=== PATIENT | female | born 1970 | race Caucasian/White ===

== ENCOUNTER 2017-07-24 07:38 | Inpatient (IN) | payer OTHER ==
[~2017-07-24] VITALS: Ht 162.6 cm; Wt 94.8 kg
[2017-07-24] VITALS (11 sets, daily range): BP systolic 94–165; BP diastolic 28–83
[2017-07-24 08:02] LABS: HEMATOCRIT 48.6 % (37.0-47.0); HEMOGLOBIN 15.2 gm/dL (12.0-15.0); MCH 29.5 pg (26.0-34.0); MCHC 31.3 g/dL (28.0-37.0); MCV 94.2 fL (80.0-100.0); MPV 9.7 fl. (7.2-11.1); NUCLEATED RBCS 0 /100WBC; PLATELET COUNT* 334 thou/uL (150-400); RBC 5.15 mil/uL (4.20-5.00); RDW-CV 14.9 % (10.5-14.5); WBC 11.9 thou/uL (4.0-11.0)
[2017-07-24] MEDS ORDERED: NOVOLOG100 UNIT/1 SUBQ (08:08)
[2017-07-24] MEDS ORDERED: ASPIR-LOW81 MG PO (08:08)
[2017-07-24] MEDS ORDERED: ZOCOR20 MG PO (08:09)
[2017-07-24] MEDS ORDERED: WELLBUTRIN XL300 MG PO (08:09)
[2017-07-24] MEDS ORDERED: TYLENOL EXTRA500 MG PO (08:09)
[2017-07-24] MEDS ORDERED: LYRICA 75 MG CA75 MG PO (08:09)
[2017-07-24 08:13] LABS: BUN 17 mg/dL (7-18); CALCIUM 9.1 mg/dL (8.5-10.1); CHLORIDE 90 mmol/L (98-107); CREATININE 1.4 mg/dL (0.6-1.3); SODIUM 126 mmol/L (136-145)
[2017-07-24 08:15] LABS: APTT 31.8 Seconds (25.0-31.3)
[2017-07-24 08:22] LABS: ALBUMIN 3.5 g/dL (3.4-5.0); ALKALINE PHOSPHATASE 167 U/L (46-116); LIPASE 46 U/L (73-393); NT-PRO BRAIN NAT PEPTIDE 64 pg/mL (<300); SGOT 21 U/L (15-37); SGPT 24 U/L (30-65); TOTAL BILIRUBIN 0.5 mg/dL (<0.1-1.0); TOTAL PROTEIN 8.5 g/dL (6.4-8.2); TROPONIN-I LEVEL <0.06 ng/mL (<0.06)
[2017-07-24 08:25] LABS: ANION GAP 29 mmol/L (7-16); CO2 7 mmol/L (21-32)
[2017-07-24 08:26] LABS: BE -22.4 mmol/L (-2 to +3)
[2017-07-24 08:26] LABS: GLUCOSE 592 mg/dL (70-99)
[2017-07-24 08:30] LABS: HCO3 4.3 mmol/L (22.0-26.0); PCO2 < 17.0 mmHg (35.0-45.0); PO2 146.5 mmHg (75.0-100.0); pH 7.126 (7.340-7.450)
[2017-07-24 08:47] LABS: ABSOLUTE LYMPHOCYTES 0.8 thou/uL (0.8-5.3); ABSOLUTE MONOCYTES 0.2 thou/uL (0.0-1.2); ABSOLUTE NEUTROPHILS 10.8 thou/uL (1.6-8.1); ATYPICAL LYMPHS 1 %; PLATELET ESTIMATE ADEQUATE; TOXIC GRANULATION 1+
[2017-07-24 08:59] LABS: MAGNESIUM 1.9 mg/dL (1.8-2.4); PHOSPHORUS* 4.9 mg/dL (2.5-4.9)
--- NOTE | 2017-07-24 10:53 | NUR ---
NOTIFIED ISAMAR OF BG 300 AND INSULIN GTT CHANGED TO 4.4
--- NOTE | 2017-07-24 11:00 | EKG ---
[place] [address] ELECTROCARDIOGRAM REPORT Name: KARTIK ORTIZ Room: [place] [address] [facility]#: [id number] Admission: 07/24/17 Attend Phys: Hardeep Thomas MD Discharge: Date of : 74 Report #: [id number] THIS REPORT FOR: //name// [facility] ED Test Date: 2017-07-24 Test Time: 07:48:39 Pat Name: KARTIK ORTIZ Department: Room: [facility] Gender: F Professor Of Visual Arts: : 1970 Requested By: Criss Doherty Order Number: [id number] MD: Kodak Dexter Measurements Intervals [place] Rate: 133 P: 150 NE: 121 QRS: -51 QRSD: 109 T: 57 QT: 326 QTc: 485 Interpretive Statements Sinus or ectopic atrial tachycardia Inferior infarct, old Consider anterior infarct Lateral leads are also involved Electronically Signed On 07-24-2017 10:59:52 MEETING FACILITATOR by Kodak Dexter [email or web address] <ELECTRONICALLY SIGNED> By: Kodak Dexter MD, [facility] 07/24/17 1059 7 7 Kodak Dexter MD, [facility] /EPI
--- NOTE | 2017-07-24 13:04 | NUR ---
PATIENT ADMITED TO THE UNIT AT 1135 WITH DKA. BLOOD GLUCOSE ON ARRIVAL 236. INSULIN AT 4.4 UNITS/HR. PATIENT DENIES PAIN. STATES SHE DOES NOT FEEL SOA LIKE BEFORE. DENIES NAUSEA/VOMITING. ICE CHIPS PROVIDED. ADMISSION AND HISTORY COMPLETED. ORIENTED TO THE UNIT. USUALLY INDEPENDENT WITH ADLS. AT HOME SHE STATES HER BLOOD SUGARS ARE USUALLY WELL CONTROLLED WITH INSULIN PUMP. IN THE PROCESS OF OBTAINING CONTINUOUS BLOOD GLUCOSE MONITORING DEVICE. STATES SHE TAKES HER BLOOD SUGAR TWICE A DAY. HAS HAD "THE STOMACH FLU" SINCE Monday07/20/17. PROVIDED WITH CALL LIGHT. AT [facility]. COMPLAINT WITH CARE AND DENIES FURTHER IMMEDIATE NEEDS FROM NURSING AT THIS TIME.
[2017-07-24 13:32] LABS: CALCIUM 8.2 mg/dL (8.5-10.1); CREATININE 1.1 mg/dL (0.6-1.3)
[2017-07-24 13:34] LABS: POTASSIUM 3.5 mmol/L (3.5-5.1)
[2017-07-24 13:36] LABS: ALBUMIN 2.7 g/dL (3.4-5.0); MAGNESIUM 1.7 mg/dL (1.8-2.4); PHOSPHORUS* 2.9 mg/dL (2.5-4.9)
--- NOTE | 2017-07-24 17:19 | EKG ---
[place] [address] ELECTROCARDIOGRAM REPORT Name: KARTIK ORTIZ Room: [address] ADM IN [facility]#: [id number] Admission: 07/24/17 Attend Phys: Hardeep Thomas MD Discharge: Date of : 74 Report #: [id number] THIS REPORT FOR: //name// [facility] ED Test Date: 2017-07-24 Test Time: 07:44:01 Pat Name: KARTIK ORTIZ Department: Room: [address] Gender: F Testing Manager: : 1970 Requested By: Hardeep Thomas Order Number: [id number] Reading MD: Kodak Dexter Measurements Intervals [place] Rate: 136 P: 76 AL: 137 QRS: 250 QRSD: 102 T: 25 QT: 296 QTc: 446 Interpretive Statements Sinus tachycardia Consider right ventricular hypertrophy Probable inferior infarct Probable anterolateral infart Baseline wander in lead(s) II,III,aVF No previous ECG available for comparison Electronically Signed On 07-24-2017 17:19:31 ALARM SIGNAL OPERATOR by Kodak Dexter [email or web address] <ELECTRONICALLY SIGNED> By: Kodak Dexter MD, [facility] 07/24/17 1719 0744 0744 Kodak Dexter MD, [facility] /EPI
[2017-07-24 17:39] LABS: CALCIUM 7.9 mg/dL (8.5-10.1); POTASSIUM 3.4 mmol/L (3.5-5.1)
[2017-07-24 17:41] LABS: ALBUMIN 2.6 g/dL (3.4-5.0); MAGNESIUM 1.7 mg/dL (1.8-2.4); PHOSPHORUS* 1.9 mg/dL (2.5-4.9)
--- NOTE | 2017-07-24 17:53 | NUR ---
PATIENT PROGRESSING TOWARDS GOALS. DKA RESOLVING. REFER TO ACCUCHECKS AND LABS. PATIENT DENIES ANY OTHER ACUTE ISSUES. WISHES TO DISCHARGE TOMORROW.
[2017-07-24 21:37] LABS: CALCIUM 7.9 mg/dL (8.5-10.1); CREATININE 0.9 mg/dL (0.6-1.3); POTASSIUM 4.2 mmol/L (3.5-5.1)
[2017-07-24 21:40] LABS: ALBUMIN 2.4 g/dL (3.4-5.0); MAGNESIUM 1.6 mg/dL (1.8-2.4)
[2017-07-25] VITALS (9 sets, daily range): BP systolic 92–143; BP diastolic 56–74
[2017-07-25 04:44] LABS: HEMATOCRIT 37.8 % (37.0-47.0); MCH 29.3 pg (26.0-34.0); MCHC 32.6 g/dL (28.0-37.0); MCV 89.8 fL (80.0-100.0); MPV 9.1 fl. (7.2-11.1); RBC 4.2 mil/uL (4.20-5.00); RDW-CV 14.4 % (10.5-14.5)
[2017-07-25 04:57] LABS: CALCIUM 8.1 mg/dL (8.5-10.1); CREATININE 0.9 mg/dL (0.6-1.3); POTASSIUM 3.7 mmol/L (3.5-5.1)
[2017-07-25 05:08] LABS: HEMOGLOBIN 12.3 gm/dL (12.0-15.0)
--- NOTE | 2017-07-25 06:42 | NUR ---
PATIENT PROGRESSING TOWARDS GOALS.
[2017-07-25 07:18] LABS: URINE BLOOD NEGATIVE (Negative); URINE CLARITY CLEAR; URINE COLOR YELLOW; URINE GLUCOSE-RANDOM 2+ (Negative); URINE LEUKOCYTES NEGATIVE (Negative); URINE NITRITE NEGATIVE (Negative); URINE PROTEIN TRACE (Negative); URINE SPECIFIC GRAVITY >= 1.030 (1.005-1.030); URINE UROBILINOGEN 0.2 E.U./dl (0.2-1.0)
[2017-07-25 07:21] LABS: ICTOTEST (BILI CONFIRMATORY) Negative (Negative); URINE BILIRUBIN 1+ (Negative); URINE KETONES 3+ (Negative)
--- NOTE | 2017-07-25 08:29 | NUR ---
3996 ASSUMED CARE OF PATIENT. PLEASE SEE DOCUMENTED ASSESSMENT. DR PENN TO SEE PATIENT. PT TO EAT AND STOP INSULIN DRIP;PT WILL TRANSITION TO OWN INSULIN PUMP TONIGHT. PT IS NOW TELE STATUS
--- NOTE | 2017-07-25 09:12 | NUR ---
OFF INSULIN GTT. TO MOVE TO ROOM 205
--- NOTE | 2017-07-25 10:48 | NUR ---
TRANSFERRED PER WHEELCHAIR TO 205 WITH ALL RECORDS AND BELONGINGS. THIS NURSE CONTINUES CARE. ORIENTED TO TELEMETRY
--- NOTE | 2017-07-25 15:56 | NUR ---
1100 PATIENT STARTED OWN INSULIN PUMP AT BASAL RATE.
--- NOTE | 2017-07-25 15:56 | NUR ---
1230 MAG RESULT NOTED. HEADACHE RESOLVED. APPETITE GOOD. FAMILY PRESENT
--- NOTE | 2017-07-25 17:46 | NUR ---
1715 PATIENT'S INSULIN PUMP IS OCCLUDED. PT IS NOT SURE HOW LONG SHE HAS NOT RECEOVED BASAL RATE. DINNER BLOOD SUGAR COVERED WITH LISPRO
--- NOTE | 2017-07-25 17:47 | NUR ---
PT PROGRESSING TOWARDS GOALS. OFF OF DKA PROTOCOL THIS MORNING AND INSULIN GTT DISCONTINUED. PT STARTED OWN INSULIN PUMP BUT IT IS NOW OCCLUDED. APPETITE IS GOOD. BRP. FAMILY HAS VISITED.
--- NOTE | 2017-07-25 18:36 | NUR ---
PATIENT'S INSULIN PUMP IS NOW FUNCTIONAL AND INFUSING AT BASAL RATE
[2017-07-26 00:23] VITALS: BP 126/63
--- NOTE | 2017-07-26 02:36 | NUR ---
Pt's BG in low 200s. Denies pain, but states she feels like she is in afib based on symptomology when she was in afib in the past. ST per monitor, also having freq PVCs. IV to RAC found to be infiltrated shortly after beginning of shift; new IV started to LW. VSS. Requested BG checked after awakening and noticing that she had been sweating; BG 200 at that time. Pt's insulin pump has been operating properly. Will continue to monitor.
[2017-07-26 04:16] VITALS: BP 107/65
[2017-07-26 05:06] LABS: HEMATOCRIT 35.7 % (37.0-47.0); HEMOGLOBIN 12.1 gm/dL (12.0-15.0); MCHC 33.7 g/dL (28.0-37.0); MCV 88.8 fL (80.0-100.0); MPV 9.2 fl. (7.2-11.1); RBC 4.02 mil/uL (4.20-5.00); RDW-CV 14.9 % (10.5-14.5); WBC 5.5 thou/uL (4.0-11.0)
[2017-07-26 06:09] LABS: CREATININE 0.6 mg/dL (0.6-1.3); MAGNESIUM 1.7 mg/dL (1.8-2.4); POTASSIUM 3.6 mmol/L (3.5-5.1)
[2017-07-26 09:00] VITALS: BP 108/69
--- NOTE | 2017-07-26 09:00 | NUR ---
ASSUMED PT. CARE AND RECEIVED REPORT AT 0730. PT A/OX4, VSS, MONITOR ON TRACING SR. PT. DENIES CURRENT PAIN/SOB. STATES SHE FEELS "PALPITATIONS" AT TIMES. SHE CAN BE ST AND HAVE PVCS AT TIMES. FULL ASSESSMENT COMPLETED, REFER TO CHARTING. PT. REFUSING NPH INSULIN THIS MORNING, STATES SHE GAVE 5 UNITS WITH INSULIN PUMP AND DOES NOT NEED ANYTHING ELSE. PT. WANTS TO DC TODAY. CALL LIGHT IN REACH, WILL CONTINUE WITH PLAN OF CARE.
--- NOTE | 2017-07-26 09:29 | NUR ---
CM SPOKE TO THE PATIENT TO DISCUSS HOME SITUATION, DISCHARGE PLANNING, AND TO INFORM OF THE ROLE OF CM. PATIENT ALERT, ORIENTED, AND INDEPENDENT WITH ADL'S. PATIENT WORKS AND DRIVES. PATIENT RESIDES AT HOME WITH SPOUSE. PATIENT USES 0 DME. PATIENT HAS NO HH OR SNF HX. PATIENT PLANS TO RETURN HOME AT D/C AND DOES NOT BELIEVE THAT SHE WILL NEED ANYTHING. CM WILL REMAIN AVAILABLE TO ASSIST AND FOLLOW NEEDED.
[2017-07-26 10:53] VITALS: BP 108/69
--- NOTE | 2017-07-26 11:05 | NUR ---
DC ORDERS RECEIVED. IV AND MONITOR REMOVED. PT. GIVEN DC INSTRUCTIONS, VERBALIZED UNDERSTANDING. PT. AMBULATED TO PERSONAL VEHICLE WITH SPOUSE, ALL BELONGINGS ACCOUNTED FOR.
== END 2017-07-26 11:05 | disposition home or self-care (01) | DRG 638 ==
LOC: M.ERS 07:38 → M.TBA-ER 08:43 → M.ICU 08:43 → M.2W 07-25 10:07
PROVIDERS: Personal Emergency Response Attendant; ADMIT Internal Medicine
DX: E10.10 Type 1 diabetes mellitus with ketoacidosis without coma (principal); R65.10 Systemic inflammatory response syndrome (SIRS) of non-infectious origin without acute organ dysfunction; I48.91 Unspecified atrial fibrillation; J45.909 Unspecified asthma, uncomplicated; K52.9 Noninfective gastroenteritis and colitis, unspecified; E86.9 Volume depletion, unspecified